=== PATIENT | male | born 1950 | race Asian ===

== ENCOUNTER 2019-12-02 12:30 | Observation (INO) ==
[~2019-12-02 12:30] MED LIST: NS 0.9% 1000 ml BAG 1,000 ML IV SCH
[2019-12-02] MEDS ORDERED: Ondansetron ODT 4 mg TAB 4 MG TAB SL PRN (12:57)
[2019-12-02] MEDS ORDERED: LORazepam 0.5 mg TAB (*) PO PRN (12:57)
[2019-12-02] MEDS ORDERED: Morphine 2 MG/ML SYRINGE IV PRN (12:57)
[2019-12-02] MEDS ORDERED: fentaNYL 100 mcg/2 ml 50 MCG/ML VIAL ONE (13:01)
[2019-12-02] MEDS ORDERED: Midazolam 10 mg/10 ml VIAL 1 mg/ml 10 ml VIAL (10 mg) ONE (13:02)
[2019-12-02] MEDS ORDERED: ceFAZolin 2 GM PREMIX in ORs 2 GM/50 ML BAG ONE (13:08)
[2019-12-02 14:32] LABS: Albumin 4.1 g/dL (3.2-5.2); Albumin/Globulin Ratio 1.1 (1-3); BUN/Creatinine Ratio 24.5 (8-20); Calcium 9.6 mg/dL (8.6-10.3); EGFR African American 80.5 (>60); EGFR Non-African American 66.6 (>60); Globulin 3.6 g/dL (2-4); Potassium 3.8 mmol/L (3.5-5.0); Total Bilirubin 0.6 mg/dL (0.2-1.0); Total Protein 7.7 g/dL (6.4-8.9)
[2019-12-02] MEDS: Pantoprazole VIAL 40 MG VIAL IV SCH (15:59)
[2019-12-02 21:04] LABS: Hepatitis C Antibody Negative (Negative)
[2019-12-03 06:46] LABS: Hematocrit 37 % (42-52); Hemoglobin 12.9 g/dL (14.0-18.0); Mean Corpuscular HGB Conc 35 g/dL (31-36); Mean Corpuscular Hemoglobin 32 pg (27-31); Mean Corpuscular Volume 93 fL (80-94); Mean Platelet Volume 7.6 fL (7.4-10.4); Platelet Count 236 10^3/uL (150-450); Red Blood Count 4.01 10^6 /uL (4.18-5.48); Red Cell Distribution Width 13 % (10-15)
[2019-12-03 07:11] LABS: Albumin 3.5 g/dL (3.2-5.2); Albumin/Globulin Ratio 1.3 (1-3); BUN/Creatinine Ratio 24.5 (8-20); Calcium 9.1 mg/dL (8.6-10.3); EGFR African American 84.1 (>60); EGFR Non-African American 69.5 (>60); Globulin 2.8 g/dL (2-4); Potassium 3.9 mmol/L (3.5-5.0); Total Bilirubin 0.7 mg/dL (0.2-1.0); Total Protein 6.3 g/dL (6.4-8.9)
[2019-12-03 08:41] VITALS: BP 150/80
[2019-12-03] MEDS: Pantoprazole VIAL 40 MG VIAL IV SCH (09:04)
== END 2019-12-03 11:16 | disposition home or self-care (01) ==
LOC: MED 12:30 → ENDO 12:30
PROVIDERS: ADMIT Internal Medicine Hematology & Oncology; ATTEND Internal Medicine Hematology & Oncology

== ENCOUNTER 2019-12-09 15:28 | Observation (INO) ==
[2019-12-09] MEDS ORDERED: NS 0.9% 1000 ml BAG 1,000 ML IV ONE (15:36)
[2019-12-09 15:45] LABS: ABS Lymphocytes 1.2 10^3/ul (1.0-4.8); ABS Monocytes 0.9 10^3/ul (0-0.8); Eosinophil % 0.6 %; Hematocrit 39 % (42-52); Hemoglobin 13.8 g/dL (14.0-18.0); Lymphocyte % 17.9 %; Mean Corpuscular HGB Conc 35 g/dL (31-36); Mean Corpuscular Hemoglobin 32 pg (27-31); Mean Corpuscular Volume 92 fL (80-94); Mean Platelet Volume 7.2 fL (7.4-10.4); Platelet Count 166 10^3/uL (150-450); Red Blood Count 4.27 10^6 /uL (4.18-5.48); Red Cell Distribution Width 12 % (10-15)
[2019-12-09 15:54] LABS: Activated Partial Thrombo Time 20.9 seconds (26.0-38.0); INR 1.04 (0.82-1.09)
[2019-12-09 16:03] LABS: Troponin I 0.01 ng/mL (<0.03)
[2019-12-09 16:06] LABS: ALT 38 U/L (7-52); AST 29 U/L (13-39); Albumin 3.8 g/dL (3.2-5.2); Albumin/Globulin Ratio 1.1 (1-3); Alkaline Phosphatase 106 U/L (34-104); Anion Gap 9 mmol/L (2-11); BUN/Creatinine Ratio 12.5 (8-20); Blood Urea Nitrogen 15 mg/dL (6-24); CO2 Carbon Dioxide 27 mmol/L (22-32); Calcium 9.3 mg/dL (8.6-10.3); Chloride 93 mmol/L (101-111); Cholesterol 193 mg/dL; EGFR African American 72.9 (>60); EGFR Non-African American 60.2 (>60); Globulin 3.4 g/dL (2-4); Glucose 113 mg/dL (70-100); HDL Cholesterol 34.6 mg/dL; LDL Cholesterol 133 mg/dL; Magnesium 1.8 mg/dL (1.9-2.7); Sodium 129 mmol/L (135-145); Total Protein 7.2 g/dL (6.4-8.9); Triglycerides 128 mg/dL
[2019-12-09 16:22] LABS: Alcohol, S < 10 mg/dL (<10)
[2019-12-09] MEDS ORDERED: Ondansetron 4 mg VIAL 2 MG/ML 2 ml VIAL IV PRN (18:30)
[2019-12-09] MEDS ORDERED: Gadoteridol (CONTRAST) 279.3 MG/ML 10 ML IV ONE (18:44)
[2019-12-09 18:56] LABS: Urine Appearance Clear; Urine Bilirubin Negative (Negative); Urine Blood Negative (Negative); Urine Color Colorless; Urine Glucose Negative (Negative); Urine Ketones Negative (Negative); Urine Nitrite Negative (Negative); Urine Protein Negative (Negative); Urine Specific Gravity 1.002 (1.010-1.030); Urine Urobilinogen Negative (Negative)
[2019-12-09] MEDS ORDERED: Magnesium Sulfate IV 1GM/100ML 1 GM/100 ML BAG IV ONE (19:17)
[2019-12-09 19:30] LABS: Urine Benzodiazepine Screen None Detected (None Detect); Urine Opiates Screen None Detected (None Detect)
[2019-12-09] MEDS ORDERED: Enoxaparin 40 MG/0.4 ML SYR(*) SUBCUT SCH (20:00)
[2019-12-09] MEDS: KCL 20 MEQ/100 ML IVPREMIX 20 MEQ/100 ML BAG IV SCH (20:49)
[2019-12-09] MEDS: NS 0.9% 1000 ml BAG 1,000 ML IV SCH (20:49)
[2019-12-10] MEDS: KCL 20 MEQ/100 ML IVPREMIX 20 MEQ/100 ML BAG IV SCH (00:07)
[2019-12-10 06:16] LABS: ABS Eosinophils 0.1 10^3/ul (0-0.6); ABS Monocytes 0.9 10^3/ul (0-0.8); Eosinophil % 0.8 %; Hematocrit 34 % (42-52); Hemoglobin 12.2 g/dL (14.0-18.0); Lymphocyte % 14.8 %; Mean Corpuscular HGB Conc 36 g/dL (31-36); Mean Corpuscular Hemoglobin 33 pg (27-31); Mean Corpuscular Volume 91 fL (80-94); Mean Platelet Volume 7.7 fL (7.4-10.4); Platelet Count 141 10^3/uL (150-450); Red Blood Count 3.71 10^6 /uL (4.18-5.48); Red Cell Distribution Width 12 % (10-15); White Blood Count 6.5 10^3/uL (3.5-10.8)
[2019-12-10 06:34] LABS: BUN/Creatinine Ratio 10.6 (8-20); Calcium 8.5 mg/dL (8.6-10.3); EGFR African American 78.1 (>60); EGFR Non-African American 64.5 (>60); Magnesium 1.7 mg/dL (1.9-2.7); Potassium 3.9 mmol/L (3.5-5.0)
[2019-12-10] MEDS: NS 0.9% 1000 ml BAG 1,000 ML IV SCH (07:53)
[2019-12-10] MEDS ORDERED: Magnesium Sulfate 2 gm BAG 2 GM/50 ML BAG IVPB ONE (07:58)
[2019-12-10 14:11] VITALS: BP 147/86
[2019-12-11] MEDS ORDERED: Potassium Chlor 20 meq TAB.ER PO SCH (09:00)
== END 2019-12-10 15:00 | disposition home or self-care (01) ==
LOC: ED 15:28 → MEDTELE 15:28
PROVIDERS: ADMIT Internal Medicine; ATTEND Internal Medicine

== ENCOUNTER 2019-12-11 20:59 | Observation (INO) ==
[2019-12-11] MEDS ORDERED: NS 0.9% 1000 ml BAG 2,000 ML IV ONE (21:16)
[2019-12-11 21:28] LABS: ABS Eosinophils 0.1 10^3/ul (0-0.6); ABS Lymphocytes 0.8 10^3/ul (1.0-4.8); ABS Monocytes 0.6 10^3/ul (0-0.8); Eosinophil % 0.6 %; Hematocrit 37 % (42-52); Mean Corpuscular HGB Conc 35 g/dL (31-36); Mean Corpuscular Hemoglobin 33 pg (27-31); Mean Corpuscular Volume 93 fL (80-94); Mean Platelet Volume 7.4 fL (7.4-10.4); Platelet Count 143 10^3/uL (150-450); Red Blood Count 3.98 10^6 /uL (4.18-5.48); Red Cell Distribution Width 12 % (10-15); White Blood Count 8.9 10^3/uL (3.5-10.8)
[2019-12-11 21:36] LABS: Albumin 3.7 g/dL (3.2-5.2); Albumin/Globulin Ratio 1.2 (1-3); BUN/Creatinine Ratio 10.6 (8-20); EGFR African American 78.1 (>60); EGFR Non-African American 64.5 (>60); Globulin 3.2 g/dL (2-4); Potassium 3.8 mmol/L (3.5-5.0); Total Bilirubin 0.6 mg/dL (0.2-1.0); Total Protein 6.9 g/dL (6.4-8.9)
[2019-12-11 22:27] LABS: Urine Appearance Clear; Urine Bilirubin Negative (Negative); Urine Blood Negative (Negative); Urine Color Straw; Urine Glucose 2+(150 mg/dL) (Negative); Urine Ketones 1+ (Negative); Urine Nitrite Negative (Negative); Urine Protein Negative (Negative); Urine Specific Gravity 1.005 (1.010-1.030); Urine Urobilinogen Negative (Negative)
[2019-12-11 23:29] LABS: Magnesium 1.5 mg/dL (1.9-2.7)
[2019-12-12] MEDS ORDERED: Magnesium Hydroxide LIQ 30 ML UDC PO PRN (00:25)
[2019-12-12] MEDS ORDERED: Al Hydrox/Mg Hydrox/Simet LIQ 30 ML UDC PO PRN (00:25)
[2019-12-12] MEDS ORDERED: Enoxaparin 40 MG/0.4 ML SYR(*) SUBCUT SCH (01:00)
[2019-12-12] MEDS ORDERED: Ondansetron ODT 4 mg TAB 4 MG TAB SL PRN (03:05)
[2019-12-12] MEDS ORDERED: Magnesium Sulfate 2 gm BAG 2 GM/50 ML BAG IVPB ONE (03:30)
[2019-12-12] MEDS ORDERED: Dextrose 50% Syringe 50 ml 25 GM/50 ML SYRINGE IV PUSH PRN (08:58)
[2019-12-12] MEDS ORDERED: Potassium Chlor 20 meq TAB.ER PO SCH (09:00)
[2019-12-12 09:34] LABS: BUN/Creatinine Ratio 11.2 (8-20); Calcium 8.8 mg/dL (8.6-10.3); EGFR Non-African American 76.1 (>60); Magnesium 2.1 mg/dL (1.9-2.7); Potassium 3.9 mmol/L (3.5-5.0)
[2019-12-12 09:45] LABS: Urine Appearance Clear; Urine Bilirubin Negative (Negative); Urine Blood Negative (Negative); Urine Color Straw; Urine Glucose Negative (Negative); Urine Ketones Trace (Negative); Urine Nitrite Negative (Negative); Urine Protein Negative (Negative); Urine Specific Gravity 1.008 (1.010-1.030); Urine Urobilinogen Negative (Negative)
[2019-12-12] MEDS ORDERED: Insulin LISPRO 100 units/ml(*) SUBCUT SCH (11:30)
[2019-12-12] MEDS ORDERED: NS 0.9% 1000 ml BAG 1,000 ML IV ONE (11:35)
[2019-12-12 12:38] VITALS: BP 133/89
== END 2019-12-12 13:15 | disposition home or self-care (01) ==
LOC: ED 20:59 → MED 20:59
PROVIDERS: ADMIT Internal Medicine; ATTEND Internal Medicine

== ENCOUNTER 2019-12-13 13:17 | Inpatient (IN) ==
[2019-12-13] MEDS ORDERED: NS 0.9% 1000 ml BAG 1,000 ML IV ONE (13:41)
[2019-12-13 14:30] LABS: Hematocrit 37 % (42-52); Mean Corpuscular HGB Conc 35 g/dL (31-36); Mean Corpuscular Hemoglobin 32 pg (27-31); Mean Corpuscular Volume 91 fL (80-94); Mean Platelet Volume 7.3 fL (7.4-10.4); Platelet Count 194 10^3/uL (150-450); Red Blood Count 4.05 10^6 /uL (4.18-5.48); Red Cell Distribution Width 12 % (10-15); White Blood Count 6.8 10^3/uL (3.5-10.8)
[2019-12-13 14:52] LABS: Urine Appearance Clear; Urine Bilirubin Negative (Negative); Urine Blood Negative (Negative); Urine Color Straw; Urine Glucose Negative (Negative); Urine Ketones Negative (Negative); Urine Nitrite Negative (Negative); Urine Protein Negative (Negative); Urine Specific Gravity 1.008 (1.010-1.030); Urine Urobilinogen Negative (Negative)
[2019-12-13 15:44] LABS: ABS Lymphocytes 0.8 10^3/ul (1.0-4.8); ABS Monocytes 0.7 10^3/ul (0-0.8); Eosinophil % 0.4 %; Lymphocyte % 12.3 %
[2019-12-13 15:45] LABS: Albumin 3.9 g/dL (3.2-5.2); Albumin/Globulin Ratio 1.1 (1-3); BUN/Creatinine Ratio 13.1 (8-20); Calcium 9.2 mg/dL (8.6-10.3); EGFR Non-African American 75.2 (>60); Globulin 3.6 g/dL (2-4); Magnesium 1.5 mg/dL (1.9-2.7); Potassium 4.1 mmol/L (3.5-5.0); Total Bilirubin 0.4 mg/dL (0.2-1.0); Total Protein 7.5 g/dL (6.4-8.9); Troponin I 0.01 ng/mL (<0.03)
[2019-12-13] MEDS ORDERED: Magnesium Sulfate IV 1GM/100ML 1 GM/100 ML BAG IV ONE (15:48)
[2019-12-13] MEDS ORDERED: Magnesium Sulfate 2 gm BAG 2 GM/50 ML BAG IVPB ONE (15:50)
[2019-12-13 16:37] LABS: TSH (Thyroid Stimulating Horm) 1.23 mcIU/mL (0.34-5.60)
[2019-12-13] MEDS ORDERED: Morphine 2 MG/ML SYRINGE IV PRN (16:52)
[2019-12-13] MEDS ORDERED: Ondansetron 4 mg VIAL 2 MG/ML 2 ml VIAL IV PRN (16:52)
[2019-12-13] MEDS ORDERED: NS 0.9% 1000 ml BAG 1,000 ML IV SCH (17:00)
[2019-12-13] MEDS: Enoxaparin 40 MG/0.4 ML SYR(*) SUBCUT SCH (21:45)
[2019-12-14 05:50] LABS: ABS Eosinophils 0.1 10^3/ul (0-0.6); ABS Monocytes 0.6 10^3/ul (0-0.8); Eosinophil % 1.3 %; Hematocrit 34 % (42-52); Hemoglobin 12.3 g/dL (14.0-18.0); Lymphocyte % 15.8 %; Mean Corpuscular HGB Conc 36 g/dL (31-36); Mean Corpuscular Hemoglobin 33 pg (27-31); Mean Corpuscular Volume 91 fL (80-94); Mean Platelet Volume 7.2 fL (7.4-10.4); Platelet Count 173 10^3/uL (150-450); Red Blood Count 3.76 10^6 /uL (4.18-5.48); Red Cell Distribution Width 12 % (10-15); White Blood Count 6.3 10^3/uL (3.5-10.8)
[2019-12-14 06:11] LABS: BUN/Creatinine Ratio 9.8 (8-20); Calcium 8.6 mg/dL (8.6-10.3); EGFR Non-African American 81.8 (>60); Potassium 3.9 mmol/L (3.5-5.0)
[2019-12-14 15:46] VITALS: BP 139/94
[2019-12-14] MEDS: Enoxaparin 40 MG/0.4 ML SYR(*) SUBCUT SCH (18:22)
== END 2019-12-14 18:25 | disposition home or self-care (01) | DRG 641 ==
LOC: ED 13:17 → MED 16:45
PROVIDERS: ADMIT Hospitalist; ATTEND Internal Medicine Hematology & Oncology

== ENCOUNTER 2020-01-24 10:59 | Inpatient (IN) ==
[2020-01-24 12:10] LABS: Hematocrit 36 % (42-52); Hemoglobin 12.5 g/dL (14.0-18.0); Mean Corpuscular HGB Conc 35 g/dL (31-36); Mean Corpuscular Hemoglobin 33 pg (27-31); Mean Corpuscular Volume 95 fL (80-94); Mean Platelet Volume 7.5 fL (7.4-10.4); Platelet Count 255 10^3/uL (150-450); Red Blood Count 3.75 10^6 /uL (4.18-5.48); Red Cell Distribution Width 15 % (10-15); White Blood Count 14.3 10^3/uL (3.5-10.8)
[2020-01-24 12:11] LABS: ABS Basophils 0.1 10^3/ul (0-0.2); ABS Lymphocytes 0.7 10^3/ul (1.0-4.8); ABS Monocytes 1.9 10^3/ul (0-0.8); ABS Neutrophils 11.6 10^3/ul (1.5-7.7); Lymphocyte % 5.2 %; Nucleated Red Blood Cells % 0.1
[2020-01-24 12:29] LABS: Albumin 3.9 g/dL (3.2-5.2); Albumin/Globulin Ratio 1.1 (1-3); BUN/Creatinine Ratio 29.1 (8-20); Calcium 9.8 mg/dL (8.6-10.3); EGFR African American 45.9 (>60); Globulin 3.4 g/dL (2-4); Magnesium 1.8 mg/dL (1.9-2.7); Potassium 3.7 mmol/L (3.5-5.0); Total Bilirubin 0.2 mg/dL (0.2-1.0); Total Protein 7.3 g/dL (6.4-8.9)
[2020-01-24] MEDS ORDERED: Ondansetron 4 mg VIAL 2 MG/ML 2 ml VIAL IV PRN (17:15)
[2020-01-24] MEDS ORDERED: LORazepam 2 mg VIAL 1 ml IV PUSH PRN (17:35)
[2020-01-24] MEDS ORDERED: Lorazepam PYXIS KEY PRN (17:35)
[2020-01-24] MEDS ORDERED: Dextrose 50% Syringe 50 ml 25 GM/50 ML SYRINGE IV PUSH PRN (17:37)
[2020-01-24] MEDS: NS 0.45% 1000 ml BAG 1,000 ML IV SCH (18:26)
[2020-01-24] MEDS: Enoxaparin 40 MG/0.4 ML SYR SUBCUT SCH (18:27)
[2020-01-24 18:50] LABS: Urine Appearance Clear; Urine Bilirubin Negative (Negative); Urine Blood Negative (Negative); Urine Color Straw; Urine Glucose Negative (Negative); Urine Ketones Negative (Negative); Urine Nitrite Negative (Negative); Urine Protein Negative (Negative); Urine Specific Gravity 1.008 (1.010-1.030); Urine Urobilinogen Negative (Negative)
[2020-01-24 19:19] LABS: Urine Chloride Concentration 152 mmol/L; Urine Sodium Concentration 132 mmol/L
[2020-01-25] MEDS: NS 0.45% 1000 ml BAG 1,000 ML IV SCH (01:40)
[2020-01-25] MEDS ORDERED: D5W 1000 ml BAG 1,000 ML IV SCH ×2 (05:00→08:31)
[2020-01-25 07:54] LABS: Hematocrit 35 % (42-52); Hemoglobin 12.1 g/dL (14.0-18.0); Mean Corpuscular HGB Conc 35 g/dL (31-36); Mean Corpuscular Hemoglobin 33 pg (27-31); Mean Corpuscular Volume 94 fL (80-94); Mean Platelet Volume 7.5 fL (7.4-10.4); Platelet Count 190 10^3/uL (150-450); Red Blood Count 3.72 10^6 /uL (4.18-5.48); Red Cell Distribution Width 15 % (10-15); White Blood Count 11.9 10^3/uL (3.5-10.8)
[2020-01-25 07:58] LABS: Albumin 3.7 g/dL (3.2-5.2); Calcium 9.5 mg/dL (8.6-10.3); Potassium 2.8 mmol/L (3.5-5.0); Total Bilirubin 0.3 mg/dL (0.2-1.0)
[2020-01-25 08:04] LABS: Albumin/Globulin Ratio 1.2 (1-3); BUN/Creatinine Ratio 31.4 (8-20); EGFR Non-African American 45.5 (>60); Globulin 3.2 g/dL (2-4); Total Protein 6.9 g/dL (6.4-8.9)
[2020-01-25] MEDS ORDERED: Magnesium Sulfate 2 gm BAG 2 GM/50 ML BAG IVPB ONE (08:14)
[2020-01-25 08:30] LABS: ABS Monocytes 1.4 10^3/ul (0-0.8); ABS Neutrophils 9.5 10^3/ul (1.5-7.7); Eosinophil % 0.1 %; Lymphocyte % 8.1 %; Nucleated Red Blood Cells % 0.1
[2020-01-25] MEDS: CMCS:Pantoprazole Packet (NF) 40 MG GRANPKT.DR PO SCH (08:33)
[2020-01-25] MEDS: KCL 20 MEQ/100 ML IVPREMIX 20 MEQ/100 ML BAG IV SCH ×3 (10:13→16:03)
[2020-01-25 14:00] LABS: Albumin 3.5 g/dL (3.2-5.2); Albumin/Globulin Ratio 1.1 (1-3); BUN/Creatinine Ratio 29.6 (8-20); Calcium 9.7 mg/dL (8.6-10.3); EGFR African American 52.7 (>60); EGFR Non-African American 43.5 (>60); Globulin 3.1 g/dL (2-4); Total Bilirubin 0.3 mg/dL (0.2-1.0); Total Protein 6.6 g/dL (6.4-8.9)
[2020-01-25] MEDS: D5W 1000 ml BAG 1,000 ML IV SCH (16:03)
[2020-01-25] MEDS: Enoxaparin 40 MG/0.4 ML SYR SUBCUT SCH (17:09)
[2020-01-26] MEDS: D5W 1000 ml BAG 1,000 ML IV SCH (02:37)
[2020-01-26 07:02] LABS: Hematocrit 35 % (42-52); Hemoglobin 12.5 g/dL (14.0-18.0); Mean Corpuscular HGB Conc 36 g/dL (31-36); Mean Corpuscular Hemoglobin 33 pg (27-31); Mean Corpuscular Volume 93 fL (80-94); Mean Platelet Volume 7.3 fL (7.4-10.4); Platelet Count 160 10^3/uL (150-450); Red Blood Count 3.73 10^6 /uL (4.18-5.48); Red Cell Distribution Width 14 % (10-15); White Blood Count 10.9 10^3/uL (3.5-10.8)
[2020-01-26 07:14] LABS: Albumin 3.6 g/dL (3.2-5.2); Albumin/Globulin Ratio 1.2 (1-3); BUN/Creatinine Ratio 27.8 (8-20); Calcium 9.4 mg/dL (8.6-10.3); EGFR African American 49.1 (>60); EGFR Non-African American 40.6 (>60); Globulin 3.1 g/dL (2-4); Magnesium 1.8 mg/dL (1.9-2.7); Total Bilirubin 0.5 mg/dL (0.2-1.0); Total Protein 6.7 g/dL (6.4-8.9)
[2020-01-26 08:02] LABS: ABS Lymphocytes 0.8 10^3/ul (1.0-4.8); ABS Monocytes 1.3 10^3/ul (0-0.8); ABS Neutrophils 8.7 10^3/ul (1.5-7.7); Lymphocyte % 7.5 %; Nucleated Red Blood Cells % 0.1
[2020-01-26] MEDS: CMCS:Pantoprazole Packet (NF) 40 MG GRANPKT.DR PO SCH (08:59)
[2020-01-26 12:20] VITALS: BP 126/90
== END 2020-01-26 12:19 | disposition home or self-care (01) | DRG 640 ==
LOC: CHOA 10:59 → MEDTELE 17:15
PROVIDERS: ADMIT Internal Medicine Hematology & Oncology; ATTEND Internal Medicine Hematology & Oncology